=== PATIENT | female | born 1935 | race Caucasian/White ===

== ENCOUNTER → 2017-03-28 | Outpatient (CLI) | payer OTHER, MEDICAID ==
[2016-11-21 22:47] VITALS: BP 150/67
[2017-03-28 09:34] LABS: CREATININE 1.7 mg/dL (0.55-1.02)
== END ==
LOC: RAD 09:01
PROVIDERS: ATTEND Neurological Surgery
DX: D33.3 Benign neoplasm of cranial nerves (principal)
CPT/HCPCS: 36415; 82565; 84520

== ENCOUNTER 2017-07-16 19:19 | Emergency (ER) | payer OTHER, MEDICAID ==
[2017-07-16 19:27] VITALS: BP 152/79; BMI 29.7
[2017-07-16] MEDS ORDERED: MORPHINE SULFATE INJ 4 MG IM ONE (21:35)
[2017-07-16] MEDS ORDERED: ZOFRAN INJ 4 MG VIAL IM ONE (21:35)
--- NOTE | 2017-07-16 21:37 | DR.GENAD ---
HPI - PCP Primary Care Physician: SHOSHANA - HPI Comment HPI Comment: SLIGHT SOB. TAKE PLAVIX. PATIENT DID NOT HIT HEAD. SHADY PELVIC PAIN. - Complaint/Symptoms Chief Complaint Doctors Comments: PAIN RIGHT LOWER RIB DUE TO A FALL SEVERAL HOURS AGO. Chief Complaint:: PAIN TO RIGHT RIBS. - Nurses notes reviewed Nurses Notes Review: Yes - Source History Provided: Patient, Family Member - Mode of Arrival Mode of Arrival: Wheelchair - Timing Onset of Chief Complaint: 07/16/17 Came on: Suddenly - Duration Duration: Constant Duration: Hours - Severity Severity: Moderate PMH - PMH Past Medical History: Yes Past Medical History: CHF, Diabetes, Dyslipidemia, GERD, Hypothyroidism, Renal Disease Past Surgical History: Yes Surgical History: Cholecystectomy, Thyroidectomy Past Surgical History Comment: PACE MAKER - Family History History of Family Medical Conditions: Yes Family Medical History: Diabetes Mellitus, Cancer, Coronary Artery Disease - Social History Does patient currently use any type of tobacco product: No Have you used tobacco products in the last 12 months: No Type of Tobacco Use: None Does any household member use tobacco: No Alcohol Use: None Do you use any recreational Drugs:: No Lives With: Family Lives Where: Home - infectious screening In the last 2 months have you had wt loss of >10#?: NO Have you had fever, night sweats or hemotysis?: No Have you traveled outside the country in the last 6 months?: No Isolation: Standard ROS - Review of Systems Constitutional: No Symptoms Reported Eyes: No Symptoms Reported ENTM: No Symptoms Reported Respiratoy: No Symptoms Reported Cardiovascular: No Symptoms Reported Gastrointestinal/Abdominal: No Symptoms Reported Genitourinary: No Symptoms Reported Neurological: No Symptoms Reported Musculoskeletal: Muscle Pain, Chest wall (RT LOWER CHEST), Rib(s) (RT LOWER RIBS ) Integumentary: No Symptoms Reported Hematologic/Lymphatic: Easy Bleeding, Easy Bruising Endocrine: No Symptoms Reported All Other Systems: Reviewed and Negative PE - Vital Signs Vitals: Temperature 98.6 F Pulse Rate 71 Respiratory Rate 18 Blood Pressure [Right Arm] 131/58 Blood Pressure 152/79 O2 Sat by Pulse Oximetry 99 - General Limitations: No Limitations General Appearance: Alert - Head Head Exam: Normal Inspection - Eyes Eye exam: Normal Appearance - ENT ENT Exam: Normal External Ear Exam External Ear Exam: Normal External Inspection TM/Canal Exam: Bilateral Normal Nose Exam: Normal Nose Exam Mouth Exam: Normal Inspection Throat Exam: Normal Inspection - Neck Neck Exam: Trachea Midline - Chest Chest Inspection: Symmetric Chest Wall Rise - Respiratory Respiratory Exam: Chest Wall Tenderness (RT LOWER CHEST) Respiratory Exam: Bilateral Rhonchi, Lower Rhonchi - Cardiovascular Cardiovascular Exam: Regular Rate, Normal Rhythm, Normal Heart Sounds - Abdominal Exam Abdominal Exam: Normal Bowel Sounds, Soft. negative: Tenderness - Extremities Extremities Exam: Normal Inspection - Back Back Exam: Paraspinal Tenderness (LOWER BACK) - Neurologic Neurological Exam: Alert, Oriented X3 - Psychiatric Psychiatric Exam: Anxious - Skin Skin Exam: Normal Color MDM - Additional Information Additional Information Obtained From: Family - Differential Diagnosis Differential Diagnosis: RIGHT RIB CONTUSION, FRACTURE Course - Treatment Treatment: SEE ORDERS. IM PAIN MED IN ED. - Education/Counseling Education/Counseling: Patient, Family, Education Educated On: Treatment, Diagnosis, Needs for Follow Up ROR - XRAY XRAY Findings: REPORT DISCUSS WITH PATIENT AND FAMILY. - Diagnosis Discharge Problem: Right-sided chest wall pain Contusion of rib on right side Qualifiers: Encounter type: initial encounter Qualified Code(s): S20.211A - Contusion of right front wall of thorax, initial encounter - Discharge Plan Disposition: 01 HOME, SELF-CARE Condition: Stable - Follow ups/Referrals Follow ups/Referrals: KENDRA ANNA V [Primary Care Provider] - 2 days - Instructions Instructions: Rib Contusion Additional Instructions: RETURN TO ED IF WORSE.
[2017-07-16] MEDS ORDERED: ZOFRAN INJ 4 MG VIAL ONE ×2 (21:41→21:58)
[2017-07-16] MEDS ORDERED: MORPHINE SULFATE INJ 4 MG ONE ×2 (21:41→21:58)
--- NOTE | 2017-07-16 22:48 | RAD ---
Four views of the left ribs Indication: Left rib pain after fall. Comparison: 07/23/2016 Findings: There has been interval placement of left chest wall pacemaker. Heart size is normal. No fo leeanna airspace opacity or pneumothorax. Overall examination is limited as oblique imaging only visualiz es the lower 3 ribs and there is obscuration of the upper left lateral ribs by the pacemaker. No disp laced rib fracture is identified on the left. Multiple remote posterior lateral right sided rib fract ures are similar to prior exam. Impression: Limited examination demonstrates no displaced left-sided rib fracture. Reported By:
== END 2017-07-16 23:22 | disposition home or self-care (01) ==
LOC: ER 19:34
DX: S20.211A Contusion of right front wall of thorax, initial encounter (principal); R07.89 Other chest pain; W19.XXXA Unspecified fall, initial encounter; Y92.9 Unspecified place or not applicable
CPT/HCPCS: 71111; 96372; 99282; 99283; J2270; J2405

== ENCOUNTER 2017-09-03 12:05 | Emergency (ER) | payer OTHER, MEDICAID ==
[2017-09-03 12:14] VITALS: BMI 29.2
--- NOTE | 2017-09-03 12:28 | DR.NAUSEAF ---
HPI - Time Seen Time seen: 12:20 - Primary Care Physician Primary Care Physician: SHOSHANA - HPI Comment HPI Comment: Nausea + vomitting since yesterday. About 10 emesisce since onset. She denies recent travel or consumption of poorly prepared food. She has no abdominal pain or fever. 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 Self Treatment fo Chief Complaint: ZOFRAN - Reviewed Nurses Notes Reviewed: Yes - Source History Provided: Patient, Family Member - Mode of Arrival Mode of Arrival: Ambulatory - Timing Onset of Chief Complaint: 09/02/17 - Severity Number of episodes of vomiting over last 24 hours: 10 - Context Onset: After Eating (chicken) Recent: None Possible Ingestion: denies: Unknown, ETOH, Ethylene Glycol, Isopropanol, Methanol : No PMH - PMH Past Medical History: Yes Past Medical History: CHF, Coronary Artery Disease (s/p M.I.- 2016), Diabetes, Dyslipidemia, GERD, Hypothyroidism, Renal Disease Past Surgical History: Yes Surgical History: Cholecystectomy, Thyroidectomy - Family History History of Family Medical Conditions: Yes Family Medical History: Diabetes Mellitus, Cancer, Coronary Artery Disease - Social History Does patient currently use any type of tobacco product: No Have you used tobacco products in the last 12 months: No Type of Tobacco Use: None Does any household member use tobacco: No Alcohol Use: None Do you use any recreational Drugs:: No Lives With: Family Lives Where: Home - infectious screening In the last 2 months have you had wt loss of >10#?: NO Have you had fever, night sweats or hemotysis?: No Have you traveled outside the country in the last 6 months?: No Isolation: Standard ROS - Review of Systems Constitutional: No Symptoms Reported Eyes: No Symptoms Reported ENTM: No Symptoms Reported Respiratoy: No Symptoms Reported Cardiovascular: No Symptoms Reported Gastrointestinal/Abdominal: Nausea, Vomiting Genitourinary: No Symptoms Reported Neurological: No Symptoms Reported Musculoskeletal: No Symptoms Reported Integumentary: No Symptoms Reported Hematologic/Lymphatic: No Symptoms Reported Endocrine: No Symptoms Reported Psychiatric: No Symptoms Reported All Other Systems: Reviewed and Negative PE - Vital Signs Vitals: Temperature 98.4 F Pulse Rate [Left Brachial] 82 Pulse Rate 80 Respiratory Rate 18 Blood Pressure [Right Arm] 172/74 Blood Pressure 148/79 O2 Sat by Pulse Oximetry 95 - General Limitations: No Limitations General Appearance: Alert, In No Apparent Distress - Head Head Exam: Normal Inspection - Eyes Eye exam: Normal Appearance - ENT ENT Exam: Normal Exam - Neck Neck Exam: Normal Inspection, Full ROM, Trachea Midline - Chest Chest Inspection: Normal Inspection, Symmetric Chest Wall Rise - Respiratory Respiratory Exam: Normal Lung Sounds Bilat - Cardiovascular Cardiovascular Exam: Regular Rate, Normal Rhythm - Abdominal Exam Abdominal Exam: Normal Inspection, Normal Bowel Sounds, Soft - Rectal Rectal Exam: Deferred - Extremities Extremities Exam: Normal Inspection, Full ROM - Back Back Exam: Normal Inspection - Neurologic Neurological Exam: Alert, Oriented X3, CN II-XII Intact - Psychiatric Psychiatric Exam: Normal Affect, Normal Mood - Skin Skin Exam: Warm, Dry, Intact, Normal Color Course - Reevaluation 1st: Improved 2nd: Improved - Education/Counseling Education/Counseling: Patient Educated On: Treatment, Diagnosis, Needs for Follow Up ROR - Labs Reviewed Result Diagrams: 09/03/17 12:50 09/03/17 12:50 Laboratory: WBC 10.7 X10^3/uL (3.6-10.0) H 09/03/17 12:50 RBC 4.07 X10^6/uL (3.5-5.4) 09/03/17 12:50 Hgb 12.2 g/dL (12.0-16.0) 09/03/17 12:50 Hct 36.7 % (36.0-47.0) 09/03/17 12:50 MCV 90.2 fL (80.0-100.0) 09/03/17 12:50 MCH 29.9 pg (27.0-34.0) 09/03/17 12:50 MCHC 33.2 g/dL (33.0-35.0) 09/03/17 12:50 RDW 14.8 % (11.6-16.5) 09/03/17 12:50 Plt Count 200 X10^3/uL (150.0-450.0) 09/03/17 12:50 MPV 10.3 fL (7.4-11.0) 09/03/17 12:50 Neut % 81.5 % (42.0-75.0) H 09/03/17 12:50 Lymph % 10.5 % (21.0-51.0) L 09/03/17 12:50 [place] % 3.9 % (0.0-13.0) 09/03/17 12:50 Eos % 2.6 % (0.9-2.9) 09/03/17 12:50 Baso % 1.5 % (0.2-1.0) H 09/03/17 12:50 Neut # 8.8 x10^3/uL (2.2-4.8) H 09/03/17 12:50 Lymph # 1.1 X10^3/uL (1.3-2.9) L 09/03/17 12:50 [place] # 0.4 x10^3/uL (0.3-0.8) 09/03/17 12:50 Eos # 0.3 x10^3/uL (0.0-0.2) H 09/03/17 12:50 Baso # 0.2 X10^3/uL (0.0-0.1) H 09/03/17 12:50 Absolute Nucleated RBC 0.0 /100WBC 09/03/17 12:50 Sodium 142 mmol/L (136-145) 09/03/17 12:50 Corrected Sodium 143 mmol/L (136-145) 09/03/17 12:50 Potassium 4.1 mmol/L (3.5-5.1) 09/03/17 12:50 Chloride 102 mmol/L (98-107) 09/03/17 12:50 Carbon Dioxide 33.3 mmol/L (21-32) H 09/03/17 12:50 BUN 38 mg/dL (7-18) H 09/03/17 12:50 Creatinine 1.57 mg/dL (0.55-1.02) H 09/03/17 12:50 Est GFR (MDRD) Af Amer 40 (>60) L 09/03/17 12:50 Est GFR (MDRD) Non-Af 33 (>60) L 09/03/17 12:50 Glucose 154 mg/dL (65-99) H 09/03/17 12:50 Calcium 9.2 mg/dL (8.5-10.1) 09/03/17 12:50 Amylase 42 Units/L (25-115) 09/03/17 12:50 Lipase 101 Units/L (73-393) 09/03/17 12:50 - XRAY XRAY Interpreted by: Radiologist (CXR: Normal chest. Abd: No free air) - Diagnosis Discharge Problem: Nausea, Renal insufficiency - Discharge Plan Disposition: HOME, SELF-CARE Condition: Stable - Follow ups/Referrals Follow ups/Referrals: KENDRA ANNA V [Primary Care Provider] - 3 days - Instructions
[2017-09-03] MEDS ORDERED: ZOFRAN INJ 4 MG VIAL IVP ONE ×2 (12:30→16:11)
[2017-09-03] MEDS ORDERED: NS 1/2 500 ML IV 500 ML IV ONE (12:30)
[2017-09-03] MEDS ORDERED: NS 1000 ML 1,000 ML ONE (12:34)
[2017-09-03] MEDS ORDERED: ZOFRAN INJ 4 MG VIAL ONE ×2 (12:35→16:13)
[2017-09-03] MEDS ORDERED: NS 1000 ML 1,000 ML IV SCH (13:00)
[2017-09-03 13:07] LABS: BASOPHILS # (AUTO) 0.2 X10^3/uL (0.0-0.1); BASOPHILS % (AUTO) 1.5 % (0.2-1.0); EOSINOPHILS # (AUTO) 0.3 x10^3/uL (0.0-0.2); EOSINOPHILS % (AUTO) 2.6 % (0.9-2.9); HEMATOCRIT 36.7 % (36.0-47.0); HEMOGLOBIN 12.2 g/dL (12.0-16.0); LYMPHOCYTES # (AUTO) 1.1 X10^3/uL (1.3-2.9); LYMPHOCYTES % (AUTO) 10.5 % (21.0-51.0); MEAN CORPUSCULAR HEMOGLOBIN 29.9 pg (27.0-34.0); MEAN CORPUSCULAR HGB CONC 33.2 g/dL (33.0-35.0); MEAN CORPUSCULAR VOLUME 90.2 fL (80.0-100.0); MEAN PLATELET VOLUME 10.3 fL (7.4-11.0); MONOCYTES # (AUTO) 0.4 x10^3/uL (0.3-0.8); MONOCYTES % (AUTO) 3.9 % (0.0-13.0); NEUTROPHILS # (AUTO) 8.8 x10^3/uL (2.2-4.8); NEUTROPHILS % (AUTO) 81.5 % (42.0-75.0); PLATELET COUNT 200 X10^3/uL (150.0-450.0); RED BLOOD COUNT 4.07 X10^6/uL (3.5-5.4); RED CELL DISTRIBUTION WIDTH 14.8 % (11.6-16.5); WHITE BLOOD COUNT 10.7 X10^3/uL (3.6-10.0)
[2017-09-03 13:11] LABS: CALCIUM 9.2 mg/dL (8.5-10.1); CARBON DIOXIDE 33.3 mmol/L (21-32); CREATININE 1.57 mg/dL (0.55-1.02)
--- NOTE | 2017-09-03 13:23 | RAD ---
History: Vomiting Study: Abdominal survey Findings: PA upright chest and AP and supine views of the abdomen and pelvis are submitted. There is a dual lead left-sided cardiac pacer seen. The lungs are without acute infiltrate. No CHF is seen. There are displaced rib fractures involving the right 4th 5th 6th and 7th ribs. The abdominal views show moderate stool throughout colon. No focal distension of small bowel is seen. No free intraperitoneal gas is evident. Moderate vascular calcification is seen. Impression: 1. Fractures of multiple right ribs. 2. Moderate stool throughout colon without small bowel distention or free intraperitoneal gas. Reported By:
[2017-09-03 19:36] VITALS: BP 131/60
== END 2017-09-03 19:56 | disposition home or self-care (01) ==
LOC: ER 12:30
DX: S22.41XA Multiple fractures of ribs, right side, initial encounter for closed fracture (principal); N28.9 Disorder of kidney and ureter, unspecified; R11.2 Nausea with vomiting, unspecified; Y33.XXXA Other specified events, undetermined intent, initial encounter
CPT/HCPCS: 36415; 74022; 80048; 82150; 83690; 85025; 96365; 96367; 96374; 96375; 99283; A4222; J2405

== ENCOUNTER 2018-01-10 23:10 | Emergency (ER) | payer OTHER, MEDICAID ==
[2018-01-10 23:18] VITALS: BP 189/74; BMI 29.6
--- NOTE | 2018-01-11 | DR.GENAD ---
HPI - PCP Primary Care Physician: shari - Complaint/Symptoms Chief Complaint Doctors Comments: Patient states she rolled out of bed and hit the right side of her head and eye but she do not know what she hit. She is also complaining of right arm and left great toe pain. States she has rolled out of bed recently before this episode but she did not hurt herself then. States she has had a tetanus in less than a year ago. 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 States she is a patient of Dr. Mcpherson in [place] and she takes 30 units of insulin at night but she has not had her dose for tonight. She denies chest pain, SOB, cold or cough. she denies neck pain of LOC. Chief Complaint:: fell out of bed - Nurses notes reviewed Nurses Notes Review: Yes - Source History Provided: Patient - Mode of Arrival Mode of Arrival: Ambulatory - Timing Onset of Chief Complaint: 01/10/18 Came on: Suddenly - Duration Duration: Constant How lon Duration: Hours - Location Location: right forehead and eye - Severity Severity: Moderate - Modifying Factors Worsens:: nothing Improves:: nothing PMH - PMH Past Medical History: Yes Past Medical History: CHF, Coronary Artery Disease, Diabetes, Dyslipidemia, GERD , Hypothyroidism, Renal Disease Past Surgical History: Yes Surgical History: Cholecystectomy, Thyroidectomy Past Surgical History Comment: pacemaker - Family History History of Family Medical Conditions: Yes Family Medical History: Diabetes Mellitus, Cancer, Coronary Artery Disease - Social History Does patient currently use any type of tobacco product: No Have you used tobacco products in the last 12 months: No Type of Tobacco Use: None Does any household member use tobacco: No Alcohol Use: None Do you use any recreational Drugs:: No Lives With: Family Lives Where: Home - infectious screening In the last 2 months have you had wt loss of >10#?: NO Have you had fever, night sweats or hemotysis?: No Have you traveled outside the country in the last 6 months?: No Isolation: Standard ROS - Review of Systems Constitutional: No Symptoms Reported. negative: See HPI, Chills, Diaphoresis, Fever, Malaise, Weakness, Irritable, Fatigue, Loss of Appetite, Other Eyes: No Symptoms Reported, Eye Pain (pain above right eye). negative: See HPI , Blurred Vision, Tearing, Discharge, Photophobia, Diplopia, Other ENTM: No Symptoms Reported Respiratoy: No Symptoms Reported. negative: See HPI, Productive Cough, Non- Productive Cough, Moist Cough, Dry Cough, Hacking Cough, Barking Cough, Brassy Cough, Orthopnea, Short of Breath, Stridor, Wheezing, Hemoptysis, Other Cardiovascular: No Symptoms Reported. negative: See HPI, Chest Pain, Edema, Palpitations, Syncope, Cyanosis, Skin Mottling, Other Gastrointestinal/Abdominal: No Symptoms Reported. negative: See HPI, Abdominal Pain, Constipation, Diarrhea, Nausea, Vomiting, Food Intolerance, Other Genitourinary: No Symptoms Reported Neurological: No Symptoms Reported. negative: See HPI, Anxiety, Depressed, Emotional Problems, Headache, Numbness, Paresthesia, Pre-existing Deficit, Seizure, Tingling, Tremors, Weakness, Dizziness, Problems Walking, Speech Problem, Other Musculoskeletal: No Symptoms Reported, Right, Forearm Integumentary: No Symptoms Reported, Wound, Bruises Hematologic/Lymphatic: No Symptoms Reported. negative: See HPI, Anemia, Blood Clots, Easy Bleeding, Easy Bruising, Swollen Glands, Lymphadenopathy, Other Endocrine: No Symptoms Reported. negative: See HPI, Excessive Sweating, Flushing, Intolerance to Cold, Intolerance to Heat, Increased Hunger, Increased Thirst, Increased Urine, Unexplained Weight Gain, Unexplained Weight Loss, Failure to Thrive, Decreased Appetite, Other Psychiatric: No Symptoms Reported. negative: See HPI, Anxiety, Depression, Hallucinations, Excessive crying, Suicidal, Other PE - Vital Signs Vitals: Temperature 97.3 F Pulse Rate 73 Respiratory Rate 16 Blood Pressure [Right Arm] 131/60 Blood Pressure 189/74 O2 Sat by Pulse Oximetry 100 - General Limitations: No Limitations General Appearance: Alert, In Distress (mild) - Head Head Exam: Normal Inspection, Normocephalic. negative: Atraumatic (right forehead with ecchymosis and bruising around right eye with hematoma) - Eyes Eye exam: Normal Appearance, PERRL, EOMI, Periorbital Swelling (right eye swelling with ecchymosis). negative: Scleral Icterus, Conjunctival Injection, Nystagmus, Miosis, Mydrasis, Periorbital Tenderness, Other - ENT ENT Exam: Normal Exam, Normal Oropharynx, Normal External Ear Exam, Mucous Membranes Moist, TM's Normal Bilaterally External Ear Exam: Normal External Inspection TM/Canal Exam: Bilateral Normal Nose Exam: Normal Nose Exam Mouth Exam: Normal Inspection. negative: Drooling, Trismus, Lip Swelling, Tongue Elevation, Tongue Swelling, Laceration, Other Throat Exam: Normal Inspection. negative: Tonsillar Erythema, Tonsillomegaly, Tonsillar Exudate, R Peritonsillar Mass, L Peritonsillar Mass, Muffled Voice, Other - Neck Neck Exam: Normal Inspection, Full ROM, Trachea Midline - Chest Chest Inspection: Normal Inspection, Symmetric Chest Wall Rise - Respiratory Respiratory Exam: Normal Lung Sounds Bilat Respiratory Exam: Bilateral Clear to Auscultation - Cardiovascular Cardiovascular Exam: Regular Rate, Normal Rhythm, Normal Heart Sounds - Abdominal Exam Abdominal Exam: Normal Inspection, Normal Bowel Sounds, Soft. negative: Distention, Tenderness, Guarding, Rebound, Rigidity, Dimnished Bowel Sounds, Hyperactive Bowel Sounds, Hypoactive Bowel Sounds, Organomegaly, Trauma, Incision, Ascites, Mass, Bruit, Pulsatile Mass, Hernia, Other Abdominal Tenderness: negative: RUQ, RLQ, LUQ, LLQ, Epigastrium, Suprapubic, Diffuse, Mild, Moderate, Severe, Other - Extremities Extremities Exam: Normal Inspection, Full ROM, Normal Capillary Refill. negative: Tenderness (right forearm with 3-4 cm hematoma; right elbow with hematoma; good range of motion), Edema, Joint Swelling - Back Back Exam: Normal Inspection, Full ROM. negative: Tenderness, (R) CVA Tenderness, (L) CVA Tenderness, Muscle Spasm, Paraspinal Tenderness, Vertebral Tenderness, Rashes, (R) Sciatic Notch Tenderness, (L) Sciatic Notch Tendern, (R ) Straight Leg Raise, (L) Straight Leg Raise, Other - Neurologic Neurological Exam: Alert, Oriented X3, CN II-XII Intact, Reflexes Normal. negative: Normal Gait (gait not tested) - Psychiatric Psychiatric Exam: Normal Affect, Normal Mood - Skin Skin Exam: Warm, Dry, Intact, Normal Color Course - Consultation Called: 01:21 Call Returned: 01:21 (Dr. Wright accepted patient at ER at [facility]) - Education/Counseling Education/Counseling: Patient Educated On: Treatment, Diagnosis, Needs for Follow Up ROR - Labs Reviewed Laboratory Results Reviewed?: Yes (All labs and x-ray results reviewed and discussed with patient) Result Diagrams: 01/11/18 00:10 01/11/18 00:10 Laboratory: WBC 8.9 X10^3/uL (3.6-10.0) 01/11/18 00:10 RBC 3.50 X10^6/uL (3.5-5.4) 01/11/18 00:10 Hgb 10.5 g/dL (12.0-16.0) L 01/11/18 00:10 Hct 32.1 % (36.0-47.0) L 01/11/18 00:10 MCV 91.7 fL (80.0-100.0) 01/11/18 00:10 MCH 30.1 pg (27.0-34.0) 01/11/18 00:10 MCHC 32.8 g/dL (33.0-35.0) L 01/11/18 00:10 RDW 15.1 % (11.6-16.5) 01/11/18 00:10 Plt Count 213 X10^3/uL (150.0-450.0) 01/11/18 00:10 MPV 9.5 fL (7.4-11.0) 01/11/18 00:10 Neut % 74.5 % (42.0-75.0) 01/11/18 00:10 Lymph % 15.1 % (21.0-51.0) L 01/11/18 00:10 [place] % 4.3 % (0.0-13.0) 01/11/18 00:10 Eos % 5.4 % (0.9-2.9) H 01/11/18 00:10 Baso % 0.7 % (0.2-1.0) 01/11/18 00:10 Neut # 6.6 x10^3/uL (2.2-4.8) H 01/11/18 00:10 Lymph # 1.3 X10^3/uL (1.3-2.9) 01/11/18 00:10 [place] # 0.4 x10^3/uL (0.3-0.8) 01/11/18 00:10 Eos # 0.5 x10^3/uL (0.0-0.2) H 01/11/18 00:10 Baso # 0.1 X10^3/uL (0.0-0.1) 01/11/18 00:10 Absolute Nucleated RBC 0.0 /100WBC 01/11/18 00:10 INR Target Range - 01/11/18 00:10 INR 1.10 (0.8-1.3) 01/11/18 00:10 PTT 36.4 SECONDS (22.9-36.5) 01/11/18 00:10 PTT Comment - 01/11/18 00:10 Sodium 134 mmol/L (136-145) L 01/11/18 00:10 Corrected Sodium 141 mmol/L (136-145) 01/11/18 00:10 Potassium 5.5 mmol/L (3.5-5.1) H 01/11/18 00:10 Chloride 97 mmol/L (98-107) L 01/11/18 00:10 Carbon Dioxide 30.8 mmol/L (21-32) 01/11/18 00:10 BUN 46 mg/dL (7-18) H 01/11/18 00:10 Creatinine 2.41 mg/dL (0.55-1.02) H 01/11/18 00:10 Est GFR (MDRD) Af Amer 25 (>60) L 01/11/18 00:10 Est GFR (MDRD) Non-Af 20 (>60) L 01/11/18 00:10 Glucose 389 mg/dL (65-99) H 01/11/18 00:10 Calcium 8.0 mg/dL (8.5-10.1) L 01/11/18 00:10 Corrected Calcium TNP 01/11/18 00:10 Magnesium 2.0 mg/dL (1.7-2.9) 01/11/18 00:10 Total Bilirubin 0.20 mg/dL (0.2-1.0) 01/11/18 00:10 AST 22 Units/L (15-37) 01/11/18 00:10 ALT 22 Units/L (12-78) 01/11/18 00:10 Alkaline Phosphatase 122 Units/L (46-116) H 01/11/18 00:10 Creatine Kinase 220 Units/L (26-192) H 01/11/18 00:10 CK-MB (CK-2) 5.9 ng/mL (0-4.0) H* 01/11/18 00:10 CK/CKMB % Calc 2.7 % (<4) 01/11/18 00:10 Troponin I < 0.02 ng/mL (0-1.5) 01/11/18 00:10 Total Protein 7.8 g/dL (6.4-8.2) 01/11/18 00:10 Albumin 3.5 g/dL (3.4-5.0) 01/11/18 00:10 Globulin 4.3 g/dL (2.5-4.5) 01/11/18 00:10 Albumin/Globulin Ratio 0.8 Ratio (1.1-2.1) L 01/11/18 00:10 - XRAY XRAY Interpreted by: Radiologist (CT head: Acute subdural hematoma left cerebral convexity 9mm. Grossly unchanged right CP angle mass), Self (CXR: pacemaker intact; no acute cardiopulmonary changes noted) - EKG Rate: 70 [place]: Normal Rhythm: Paced Block: LBBB ST: Nonsp - Diagnosis Discharge Problem: Acute subdural hematoma, cerebellopontine mass, Essential hypertension, Contusion of right forearm, initial encounter, Hyperkalemia, Hyperglycemia Contusion of head Qualifiers: Encounter type: initial encounter Chronic kidney disease Qualifiers: Chronic kidney disease stage: stage 3 (moderate) Qualified Code(s): N18.3 - Chronic kidney disease, stage 3 (moderate) - Discharge Plan Disposition: [facility] Condition: Stable - Follow ups/Referrals Follow ups/Referrals: KENDRA ANNA V [Primary Care Provider] - 3 days - Instructions
[2018-01-11 00:30] LABS: BASOPHILS # (AUTO) 0.1 X10^3/uL (0.0-0.1); BASOPHILS % (AUTO) 0.7 % (0.2-1.0); EOSINOPHILS # (AUTO) 0.5 x10^3/uL (0.0-0.2); EOSINOPHILS % (AUTO) 5.4 % (0.9-2.9); HEMATOCRIT 32.1 % (36.0-47.0); HEMOGLOBIN 10.5 g/dL (12.0-16.0); LYMPHOCYTES # (AUTO) 1.3 X10^3/uL (1.3-2.9); LYMPHOCYTES % (AUTO) 15.1 % (21.0-51.0); MEAN CORPUSCULAR HEMOGLOBIN 30.1 pg (27.0-34.0); MEAN CORPUSCULAR HGB CONC 32.8 g/dL (33.0-35.0); MEAN CORPUSCULAR VOLUME 91.7 fL (80.0-100.0); MEAN PLATELET VOLUME 9.5 fL (7.4-11.0); MONOCYTES # (AUTO) 0.4 x10^3/uL (0.3-0.8); MONOCYTES % (AUTO) 4.3 % (0.0-13.0); NEUTROPHILS # (AUTO) 6.6 x10^3/uL (2.2-4.8); NEUTROPHILS % (AUTO) 74.5 % (42.0-75.0); PLATELET COUNT 213 X10^3/uL (150.0-450.0); RED CELL DISTRIBUTION WIDTH 15.1 % (11.6-16.5); WHITE BLOOD COUNT 8.9 X10^3/uL (3.6-10.0)
[2018-01-11 00:39] LABS: BLOOD UREA NITROGEN 46 mg/dL (7-18); CARBON DIOXIDE 30.8 mmol/L (21-32); CHLORIDE 97 mmol/L (98-107); COR NA(FOR HYPERGLY) 141 mmol/L (136-145); CREATININE 2.41 mg/dL (0.55-1.02); SODIUM 134 mmol/L (136-145); TROPONIN I < 0.02 ng/mL (0-1.5); eGFR BLACK RACES 25 (>60); eGFR NON BLACK RACES 20 (>60)
--- NOTE | 2018-01-11 00:58 | CT ---
CT head without contrast Indication: Fall with head injury Technique: CT images of the head were obtained without contrast. Automatic exposure control was utili zed. Findings: Right periorbital contusion is noted. Facial findings are reported separately. There is moderate generalized brain atrophy with concomitant ventricular and sulcal enlargement. Ther e is an acute subdural hematoma overlying the left parietal lobe measuring 9 mm in maximum thickness. There is no evidence for significant midline shift or downward herniation related to this hemorrhage . There is a difficult to measure extra-axial lesion at the right cerebellopontine angle measuring appr oximately 3.2 x 1.8 cm in maximum axial dimension (axial image 9). There is mild leftward effacement of the preet and middle cerebellar peduncle by this lesion. This lesion appears grossly unchanged comp ared with the MRIs from 2016. The medial portion of the right internal auditory canal appears mildly widened. No acute calvarial fracture is identified. The mastoid air cells and middle ears are grossly clear. Impression: 1. Acute subdural hematoma overlying the left cerebral convexity, measuring 9 mm in maximum thickness . 2. Grossly unchanged right CP angle mass. This is suggestive for a vestibular schwannoma, given IAC w idening, although other considerations include meningioma, ependymoma, and metastasis. THE AVAILABILITY OF THE REPORT AND FINDINGS WERE COMMUNICATED TO Dr. Espino BY Dr. Jones ON 018 AT 12:55 a.m. Reported By:
[2018-01-11 01:05] LABS: ALANINE AMINOTRANSFERASE 22 Units/L (12-78); ALBUMIN 3.5 g/dL (3.4-5.0); ALKALINE PHOSPHATASE 122 Units/L (46-116); ASPARTATE AMINO TRANSFERASE 22 Units/L (15-37); CKMB % 2.7 % (<4); CREATINE KINASE 220 Units/L (26-192); TOTAL PROTEIN 7.8 g/dL (6.4-8.2)
[2018-01-11 01:07] LABS: CREATINE KINASE MB 5.9 ng/mL (0-4.0)
--- NOTE | 2018-01-11 01:11 | CT ---
CT face without contrast Indication: Facial injury Technique: CT images of the face were obtained without contrast. Automatic exposure control was [employer]. Findings: CT of the head is reported separately. There is right periorbital contusion with soft tissue gas medially, suggesting associated laceration. The globes are grossly intact. There is no large retrobulbar hematoma. No acute facial fracture iden tified. The mandible is intact. The major paranasal sinuses are grossly clear, without fluid level. Impression: Right periorbital contusion/laceration. No acute facial fracture. Reported By:
[2018-01-11 01:55] LABS: BILIRUBIN,URINE NEGATIVE (NEGATIVE); BLOOD/HEMOGLOBIN,URINE NEGATIVE (NEGATIVE); GLUCOSE, URINE 4+ (NEGATIVE); KETONES,URINE NEGATIVE (NEGATIVE); LEUKOCYTE ESTERASE ,URINE 1+ (NEGATIVE); NITRITES,URINE NEGATIVE (NEGATIVE); PH,URINE 6.5 (5.0 - 8.0); PROTEIN,URINE NEGATIVE (NEGATIVE); UROBILINOGEN,URINE NORMAL (NORMAL)
--- NOTE | 2018-01-11 02:02 | RAD ---
Right forearm, AP and lateral Indication: Fall with arm injury. Findings: There is generalized osteopenia. No acute cortical disruption or malalignment of the radius or ulna. No gross soft tissue injury. Impression: No acute skeletal injury of the right forearm. Generalized osteopenia. Reported By:
[2018-01-11 02:03] LABS: APPEARANCE,URINE CLEAR (CLEAR); BACTERIA,URINE NEGATIVE /HPF (NEGATIVE); COLOR,URINE YELLOW (YELLOW); RBC,URINE 0-3 /HPF (NONE SEEN); SQUAMOUS EPITHELIAL CELL,UR RARE /HPF (NEGATIVE)
--- NOTE | 2018-01-11 02:04 | RAD ---
Chest, AP portable Indication: Chest pain after injury Comparison: 07/16/2017 Findings: Multiple chronic right-sided rib fractures are unchanged from prior. No acute skeletal inju ry is identified. The cardiac and mediastinal contours are within normal limits. There is decreased d epth of inspiration with interstitial crowding at the bases. No dense infiltrates, large effusion, or pneumothorax identified. Impression: No acute chest process. Reported By:
== END 2018-01-11 02:35 | disposition short-term general hospital (02) ==
LOC: ER 23:10
DX: S06.5X0A Traumatic subdural hemorrhage without loss of consciousness, initial encounter (principal); N18.3 Chronic kidney disease, stage 3 (moderate); S00.93XA Contusion of unspecified part of head, initial encounter; D33.3 Benign neoplasm of cranial nerves; I10 Essential (primary) hypertension; S50.11XA Contusion of right forearm, initial encounter; E87.5 Hyperkalemia; R73.9 Hyperglycemia, unspecified; R94.31 Abnormal electrocardiogram [ECG] [EKG]; W06.XXXA Fall from bed, initial encounter; Y92.9 Unspecified place or not applicable
CPT/HCPCS: 36415; 51702; 70450; 70486; 71045; 73090; 80053; 81001; 82550; 82553; 83735; 84484; 85025; 85610; 85730; 93005; 93010; 96365; 99285; A4222

== ENCOUNTER 2018-09-17 11:42 | Inpatient (IN) ==
[2018-09-17 11:50] VITALS: BMI 27.0
[2018-09-17 12:39] LABS: BASOPHILS # (AUTO) 0.1 X10^3/uL (0.0-0.1); BASOPHILS % (AUTO) 0.9 % (0.2-1.0); EOSINOPHILS # (AUTO) 0.3 x10^3/uL (0.0-0.2); EOSINOPHILS % (AUTO) 4.1 % (0.9-2.9); HEMATOCRIT 38.3 % (36.0-47.0); HEMOGLOBIN 12.4 g/dL (12.0-16.0); LYMPHOCYTES # (AUTO) 1.2 X10^3/uL (1.3-2.9); LYMPHOCYTES % (AUTO) 16.6 % (21.0-51.0); MEAN CORPUSCULAR HGB CONC 32.4 g/dL (33.0-35.0); MEAN CORPUSCULAR VOLUME 89.6 fL (80.0-100.0); MEAN PLATELET VOLUME 11.2 fL (7.4-11.0); MONOCYTES # (AUTO) 0.4 x10^3/uL (0.3-0.8); MONOCYTES % (AUTO) 5.9 % (0.0-13.0); NEUTROPHILS # (AUTO) 5.3 x10^3/uL (2.2-4.8); NEUTROPHILS % (AUTO) 72.5 % (42.0-75.0); PLATELET COUNT 164 X10^3/uL (150.0-450.0); RED BLOOD COUNT 4.27 X10^6/uL (3.5-5.4); RED CELL DISTRIBUTION WIDTH 14.9 % (11.6-16.5); WHITE BLOOD COUNT 7.2 X10^3/uL (3.6-10.0)
--- NOTE | 2018-09-17 12:43 | RAD ---
History: Dysphagia. Right facial drooping. Study: Portable upright AP chest Comparison: January 11, 2018 Findings: The heart size is normal with intact pacemaker wire leads via the left subclavian vein. The lungs are grossly clear. There are multiple deformed right posterior lateral rib fractures unchanged. There are surgical clips in the region of the thyroid. Impression: No acute disease demonstrated Reported By:
--- NOTE | 2018-09-17 12:48 | CT ---
HISTORY: Episodes of being unable to communicate, right side of mouth drooping Study: CT brain without contrast Comparison: CT 01/11/2018, MRI 03/28/2016 Technique: Multiple axial images of the brain were obtained without administration of IV contrast. Dose reduction techniques including Automated Exposure Control (AEC) and adjustment of mA and kV were utilized. Findings: There is cerebral volume loss and nonspecific white matter hypoattenuation likely related to chronic microvascular ischemic changes. 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 There is mass effect upon preet right cerebellar peduncle as well as mild effacement of the 4th ventricle that is chronic in nature without significant interval change. Differential considerations would include meningioma, vestibular schwannoma, metastatic disease etc. No evidence of hydrocephalus. There is a left-sided perianal craniotomy defect. There is a trace amount of simple subdural fluid likely postsurgical in nature. No new hemorrhage identified. IMPRESSION: 1. Post craniotomy changes on the left without evidence of acute intracranial abnormality. 2. Grossly stable right cerebellopontine angle mass as previously described. 3. Chronic cerebral volume loss and nonspecific white matter changes. Reported By:
[2018-09-17 12:58] LABS: ALBUMIN 3.2 g/dL (3.4-5.0); CALCIUM 8.2 mg/dL (8.5-10.1); CARBON DIOXIDE 33.6 mmol/L (21-32); CKMB % 2.9 % (<4); COR CA(FOR HYPOALB) 8.8 mg/dL (8.5-10.1); CREATINE KINASE MB 1.7 ng/mL (0-4.0); CREATININE 1.76 mg/dL (0.55-1.02); MAGNESIUM 2.2 mg/dL (1.7-2.9); TOTAL PROTEIN 7.5 g/dL (6.4-8.2); TROPONIN I 0.02 ng/mL (0-1.5)
[2018-09-17] MEDS ORDERED: NS 1000 ML 1,000 ML IV ONE ×2 (13:00→14:46)
[2018-09-17] MEDS ORDERED: NS 1000 ML 1,000 ML ONE ×2 (13:17→14:46)
--- NOTE | 2018-09-17 13:58 | DR.GENAD ---
HPI Time Seen Time Seen by Provider: 09/17/18 12:10 PCP Primary Care Physician: SHOSHANA Complaint/Symptoms Chief Complaint Doctors Comments: I agree with statement as written. 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 She is followed by Geraldine (neurosurgeon) [phone]. He will see her upon discharge for mental status change due to pontine mass. Chief Complaint:: PT. STATES SINCE THIS PAST SATURDAY SHE HAS BEEN HAVING EPISODES OF WHERE SHE IS UNABLE TO COMMUNICATE, EPISODES LAST APPROXIMATELY 5 MINUTES. RIGHT SIDE OF MOUTH DROOPING. EPISODE OCCURED DURING TRIAGE WHEN RIGHT SIDE OF MOUTH BEGINS TWITCHING AND PT. IS UNABLE TO COMMUNICATE, LASTED ABOUT 1-2 MINUTES. PT. STATES SHE IS HAVING A DIFFICULT TIME SWALLOWING HER PILLS. Nurses notes reviewed Nurses Notes Review: Yes Source History Provided: Patient and Family Member Mode of Arrival Mode of Arrival: Wheelchair Timing Onset of Chief Complaint: 09/12/18 PMH PMH Past Medical History: Yes Past Medical History: CHF, Coronary Artery Disease, Diabetes, Dyslipidemia, GERD, Hypothyroidism and Renal Disease Past Surgical History: Yes Surgical History: Cholecystectomy and Thyroidectomy Past Surgical History Comment: PACEMAKER, SUBDURAL HEMATOMA (METAL PLATE IN HEAD) Family History History of Family Medical Conditions: Yes Family Medical History: Diabetes Mellitus, Cancer and Coronary Artery Disease Social History Does patient currently use any type of tobacco product: No Have you used tobacco products in the last 12 months: No Type of Tobacco Use: None Does any household member use tobacco: No Alcohol Use: None Do you use any recreational Drugs:: No Lives With: Family Lives Where: Home infectious screening In the last 2 months have you had wt loss of >10#?: NO Have you had fever, night sweats or hemotysis?: No Have you traveled outside the country in the last 6 months?: No Isolation: Standard PE Vital Signs Vitals: Temperature 97.8 F Pulse Rate [Left Brachial] 70 Pulse Rate 70 Respiratory Rate 17 Blood Pressure [Right Arm] 158/70 Blood Pressure 106/55 O2 Sat by Pulse Oximetry 98 General Limitations: No Limitations and Altered Mental Status (Intermittent inability to communicate due to mass effect.) General Appearance: Alert and In No Apparent Distress Head Head Exam: Normal Inspection, Atraumatic and Normocephalic Eyes Eye exam: Normal Appearance, PERRL and EOMI ENT ENT Exam: Normal Exam and Normal Oropharynx External Ear Exam: Normal External Inspection TM/Canal Exam: Bilateral: Normal Nose Exam: Normal Nose Exam Mouth Exam: Normal Inspection Throat Exam: Normal Inspection Neck Neck Exam: Normal Inspection and Full ROM Chest Chest Inspection: Normal Inspection Respiratory Respiratory Exam: Normal Lung Sounds Bilat Respiratory Exam: Bilateral: Clear to Auscultation Cardiovascular Cardiovascular Exam: Regular Rate and Normal Rhythm Abdominal Exam Abdominal Exam: Normal Inspection, Normal Bowel Sounds and Soft Extremities Extremities Exam: Normal Inspection and Full ROM Back Back Exam: Normal Inspection and Full ROM Neurologic Neurological Exam: Alert, Oriented X3 and CN II-XII Intact Psychiatric Psychiatric Exam: Normal Affect and Normal Mood Skin Skin Exam: Warm, Dry and Intact COURSE Treatment Treatment: NS bolus for initial treatment of hyperglycemia Consultation Called: 14:15 Consultation Comments: Dr. Perales agreed to admit for further evaluation and treatment ROR Labs Reviewed Laboratory Results Reviewed?: Yes Result Diagrams: 09/17/18 12:29 09/17/18 17:20 Laboratory: WBC 7.2 X10^3/uL (3.6-10.0) 09/17/18 12:29 RBC 4.27 X10^6/uL (3.5-5.4) 09/17/18 12:29 Hgb 12.4 g/dL (12.0-16.0) 09/17/18 12:29 Hct 38.3 % (36.0-47.0) 09/17/18 12:29 MCV 89.6 fL (80.0-100.0) 09/17/18 12:29 MCH 29.0 pg (27.0-34.0) 09/17/18 12:29 MCHC 32.4 g/dL (33.0-35.0) L 09/17/18 12:29 RDW 14.9 % (11.6-16.5) 09/17/18 12:29 Plt Count 164 X10^3/uL (150.0-450.0) 09/17/18 12:29 MPV 11.2 fL (7.4-11.0) H 09/17/18 12:29 Neut % (Auto) 72.5 % (42.0-75.0) 09/17/18 12:29 Lymph % (Auto) 16.6 % (21.0-51.0) L 09/17/18 12:29 Throckmorton % (Auto) 5.9 % (0.0-13.0) 09/17/18 12:29 Eos % (Auto) 4.1 % (0.9-2.9) H 09/17/18 12:29 Baso % (Auto) 0.9 % (0.2-1.0) 09/17/18 12:29 Neut # (Auto) 5.3 x10^3/uL (2.2-4.8) H 09/17/18 12:29 Lymph # (Auto) 1.2 X10^3/uL (1.3-2.9) L 09/17/18 12:29 [place]rockmorton # (Auto) 0.4 x10^3/uL (0.3-0.8) 09/17/18 12:29 Eos # (Auto) 0.3 x10^3/uL (0.0-0.2) H 09/17/18 12:29 Baso # (Auto) 0.1 X10^3/uL (0.0-0.1) 09/17/18 12:29 Absolute Nucleated RBC 0.0 /100WBC 09/17/18 12:29 INR Target Range - 09/17/18 12:29 INR 1.01 (0.8-1.3) 09/17/18 12:29 APTT 29.4 SECONDS (22.9-36.5) 09/17/18 12:29 PTT Comment - 09/17/18 12:29 Sodium 129 mmol/L (136-145) L 09/17/18 12:29 Corrected Sodium 143 mmol/L (136-145) 09/17/18 12:29 Potassium 4.9 mmol/L (3.5-5.1) 09/17/18 12:29 Chloride 91 mmol/L (98-107) L 09/17/18 12:29 Carbon Dioxide 33.6 mmol/L (21-32) H 09/17/18 12:29 BUN 52 mg/dL (7-18) H 09/17/18 12:29 Creatinine 1.76 mg/dL (0.55-1.02) H 09/17/18 12:29 Est GFR (MDRD) Af Amer 35 (>60) L 09/17/18 12:29 Est GFR (MDRD) Non-Af 29 (>60) L 09/17/18 12:29 Glucose 391 mg/dL (65-99) H 09/17/18 17:20 POC Glucose (mg/dL) 88 mg/dL (65-99) 09/17/18 22:24 Calcium 8.2 mg/dL (8.5-10.1) L 09/17/18 12:29 Corrected Calcium 8.8 mg/dL (8.5-10.1) 09/17/18 12:29 Magnesium 2.2 mg/dL (1.7-2.9) 09/17/18 12:29 Total Bilirubin 0.60 mg/dL (0.2-1.0) 09/17/18 12:29 AST 11 Units/L (15-37) L 09/17/18 12:29 ALT 17 Units/L (12-78) 09/17/18 12:29 Alkaline Phosphatase 183 Units/L (46-116) H 09/17/18 12:29 Creatine Kinase 61 Units/L (26-192) 09/17/18 17:20 CK-MB (CK-2) 1.9 ng/mL (0-4.0) 09/17/18 17:20 CK/CKMB % Calc 3.1 % (<4) 09/17/18 17:20 Troponin I 0.02 ng/mL (0-1.5) 09/17/18 17:20 Total Protein 7.5 g/dL (6.4-8.2) 09/17/18 12:29 Albumin 3.2 g/dL (3.4-5.0) L 09/17/18 12:29 Globulin 4.3 g/dL (2.5-4.5) 09/17/18 12:29 Albumin/Globulin Ratio 0.7 Ratio (1.1-2.1) L 09/17/18 12:29 Specimen Type Clean catch urine 09/17/18 14: Urine Color Yellow (YELLOW) 09/17/18 14: Urine Appearance Clear (CLEAR) 09/17/18 14: Urine pH 7.0 (5.0 - 8.0) 09/17/18 14: Ur Specific Heber 1.010 (1.000-1.030) 09/17/18 14:19 Urine Protein Negative (NEGATIVE) 09/17/18 14:19 Urine Glucose (UA) 4+ (NEGATIVE) 09/17/18 14:19 Urine Ketones Negative (NEGATIVE) 09/17/18 14:19 Urine Occult Blood Negative (NEGATIVE) 09/17/18 14:19 Urine Nitrite Negative (NEGATIVE) 09/17/18 14:19 Urine Bilirubin Negative (NEGATIVE) 09/17/18 14:19 Urine Urobilinogen Normal (NORMAL) 09/17/18 14:19 Ur Leukocyte Esterase Negative (NEGATIVE) 09/17/18 14:19 Other Results Comments: CT Brain: There is cerebral volume loss and nonspecific white matter hypo-attenuation likely relatedto chronic micorvascular ischemic changes. Again noted is a right cerebellopontine angle mass measuring 3x2x2.4cm. There is mass effect upon preet right cerebella peduncle as well as mild effacement of the 4th ventricle that is chronic in nature without significant interval change. Differental considerations would include meningioma, vestibular schwannoma, metastatic disease,etc. No evidence of hydrocephalus. There is a left-sided perianal craniotomy defect. There is a trace amount of simple subdural fluid li chava postsurgical in nature. No new hemorrhage identified. Impression: Post craniotomy changes on the left without evidence of acute intracranial abnormality. Grossly stable right cerebellopontine angle mass as previously described. Chronic cerebral voulum loss and nonspecific white matter changes. XRAY XRAY Interpreted by: Radiologist Diagnosis Discharge Problem: Hyperglycemia, Hyponatremia, Prerenal azotemia ADDITIONAL NOTES Additional Notes Additional Notes: Patient will be admitted for treatment of her hyperglycemia.
[2018-09-17 14:26] LABS: BILIRUBIN,URINE NEGATIVE (NEGATIVE); BLOOD/HEMOGLOBIN,URINE NEGATIVE (NEGATIVE); GLUCOSE, URINE 4+ (NEGATIVE); KETONES,URINE NEGATIVE (NEGATIVE); LEUKOCYTE ESTERASE ,URINE NEGATIVE (NEGATIVE); NITRITES,URINE NEGATIVE (NEGATIVE); PROTEIN,URINE NEGATIVE (NEGATIVE); UROBILINOGEN,URINE NORMAL (NORMAL)
[2018-09-17 14:27] LABS: APPEARANCE,URINE CLEAR (CLEAR); COLOR,URINE YELLOW (YELLOW)
[2018-09-17] MEDS ORDERED: D50W ABBOJECT SYR IV PRN (14:55)
[2018-09-17] MEDS ORDERED: NS 1000 ML 1,000 ML IV PRN (14:57)
[2018-09-17] MEDS: HumuLIN R IV PRN ×2 (16:10→18:13)
[2018-09-17] MEDS: NS 1000 ML 1,000 ML IV SCH (18:18)
[2018-09-17 18:38] LABS: CKMB % 3.1 % (<4); CREATINE KINASE MB 1.9 ng/mL (0-4.0); TROPONIN I 0.02 ng/mL (0-1.5)
[2018-09-17] MEDS ORDERED: LANTISEPTIC ONE (20:34)
[2018-09-17] MEDS: LOPRESSOR TAB 25 MG PO SCH (21:51)
[2018-09-17] MEDS: LASIX PO SCH (21:51)
[2018-09-17] MEDS: LYRICA CAP 50 MG PO SCH (21:51)
[2018-09-17] MEDS: LIPITOR TAB 20 MG PO SCH (21:51)
[2018-09-17] MEDS ORDERED: LANTISEPTIC TOP PRN (21:54)
[2018-09-18 00:52] LABS: CKMB % 3.5 % (<4); TROPONIN I 0.04 ng/mL (0-1.5)
[2018-09-18] MEDS: NS 1000 ML 1,000 ML IV SCH ×2 (07:18→09:20)
[2018-09-18] MEDS ORDERED: PIOGLITAZONE PO SCH (09:00)
[2018-09-18] MEDS ORDERED: ACTOS PO SCH ×2 (09:00)
[2018-09-18] MEDS ORDERED: FERROUS SULFATE 325 MG PO SCH (09:00)
[2018-09-18] MEDS: HEMOCYTE-PLUS PO SCH (09:09)
[2018-09-18] MEDS: ASPIRIN EC 81 MG PO SCH (09:10)
[2018-09-18] MEDS: LOPRESSOR TAB 25 MG PO SCH ×2 (09:10→20:53)
[2018-09-18] MEDS: LYRICA CAP 50 MG PO SCH ×2 (09:10→20:53)
[2018-09-18] MEDS: PriLOSEC PO SCH (09:10)
[2018-09-18] MEDS: PLAVIX PO SCH (09:10)
[2018-09-18] MEDS: SYNTHROID 100 mcg TAB PO SCH (09:10)
[2018-09-18] MEDS: LASIX PO SCH (09:11)
[2018-09-18] MEDS: ULTRAM PO SCH ×2 (09:12→16:26)
[2018-09-18] MEDS ORDERED: ZOFRAN INJ 4 MG VIAL IVP PRN (10:09)
[2018-09-18 10:20] LABS: BASOPHILS # (AUTO) 0.1 X10^3/uL (0.0-0.1); BASOPHILS % (AUTO) 0.5 % (0.2-1.0); EOSINOPHILS # (AUTO) 0.2 x10^3/uL (0.0-0.2); EOSINOPHILS % (AUTO) 1.8 % (0.9-2.9); HEMATOCRIT 37.2 % (36.0-47.0); HEMOGLOBIN 12.3 g/dL (12.0-16.0); LYMPHOCYTES % (AUTO) 9.9 % (21.0-51.0); MEAN CORPUSCULAR VOLUME 87.7 fL (80.0-100.0); MEAN PLATELET VOLUME 11.6 fL (7.4-11.0); MONOCYTES # (AUTO) 0.5 x10^3/uL (0.3-0.8); MONOCYTES % (AUTO) 4.9 % (0.0-13.0); NEUTROPHILS # (AUTO) 8.4 x10^3/uL (2.2-4.8); NEUTROPHILS % (AUTO) 82.9 % (42.0-75.0); PLATELET COUNT 175 X10^3/uL (150.0-450.0); RED BLOOD COUNT 4.24 X10^6/uL (3.5-5.4); RED CELL DISTRIBUTION WIDTH 14.7 % (11.6-16.5); WHITE BLOOD COUNT 10.1 X10^3/uL (3.6-10.0)
[2018-09-18 10:29] LABS: ALBUMIN 2.9 g/dL (3.4-5.0); CALCIUM 7.8 mg/dL (8.5-10.1); CARBON DIOXIDE 26.8 mmol/L (21-32); COR CA(FOR HYPOALB) 8.7 mg/dL (8.5-10.1); CREATININE 1.18 mg/dL (0.55-1.02); TOTAL PROTEIN 7.1 g/dL (6.4-8.2)
[2018-09-18] MEDS: JANUVIA PO SCH (11:25)
[2018-09-18] MEDS: INVOKANA PO SCH (13:36)
[2018-09-18] MEDS: LIPITOR TAB 20 MG PO SCH (20:53)
[2018-09-18] MEDS ORDERED: COLACE CAP 100 MG PO PRN (21:00)
[2018-09-18] MEDS ORDERED: NORCO 5/325 MG TAB PO ONE (22:31)
[2018-09-19 05:20] LABS: BASOPHILS # (AUTO) 0.1 X10^3/uL (0.0-0.1); BASOPHILS % (AUTO) 0.9 % (0.2-1.0); EOSINOPHILS # (AUTO) 0.3 x10^3/uL (0.0-0.2); EOSINOPHILS % (AUTO) 5.1 % (0.9-2.9); HEMATOCRIT 31.1 % (36.0-47.0); HEMOGLOBIN 10.4 g/dL (12.0-16.0); LYMPHOCYTES # (AUTO) 1.8 X10^3/uL (1.3-2.9); LYMPHOCYTES % (AUTO) 25.5 % (21.0-51.0); MEAN CORPUSCULAR HGB CONC 33.3 g/dL (33.0-35.0); MEAN CORPUSCULAR VOLUME 87.2 fL (80.0-100.0); MONOCYTES # (AUTO) 0.6 x10^3/uL (0.3-0.8); NEUTROPHILS # (AUTO) 4.2 x10^3/uL (2.2-4.8); NEUTROPHILS % (AUTO) 60.5 % (42.0-75.0); PLATELET COUNT 148 X10^3/uL (150.0-450.0); RED BLOOD COUNT 3.57 X10^6/uL (3.5-5.4); RED CELL DISTRIBUTION WIDTH 14.8 % (11.6-16.5); WHITE BLOOD COUNT 6.9 X10^3/uL (3.6-10.0)
[2018-09-19 05:23] LABS: ALBUMIN 2.6 g/dL (3.4-5.0); CALCIUM 7.5 mg/dL (8.5-10.1); CARBON DIOXIDE 30.4 mmol/L (21-32); COR CA(FOR HYPOALB) 8.6 mg/dL (8.5-10.1); CREATININE 1.37 mg/dL (0.55-1.02); TOTAL PROTEIN 6.1 g/dL (6.4-8.2)
[2018-09-19] MEDS ORDERED: LASIX PO SCH (09:00)
[2018-09-19] MEDS: PLAVIX PO SCH (09:34)
[2018-09-19] MEDS: HEMOCYTE-PLUS PO SCH (09:34)
[2018-09-19] MEDS: JANUVIA PO SCH (09:35)
[2018-09-19] MEDS: ASPIRIN EC 81 MG PO SCH (09:35)
[2018-09-19] MEDS: ULTRAM PO SCH (09:35)
[2018-09-19] MEDS: LYRICA CAP 50 MG PO SCH (09:35)
[2018-09-19] MEDS: LOPRESSOR TAB 25 MG PO SCH (09:35)
[2018-09-19] MEDS: SYNTHROID 100 mcg TAB PO SCH (09:36)
[2018-09-19] MEDS: PriLOSEC PO SCH (09:36)
[2018-09-19] MEDS: INVOKANA PO SCH (09:42)
[2018-09-19 12:45] VITALS: BP 129/60
== END 2018-09-19 13:45 | disposition home or self-care (01) | DRG 69 ==
LOC: ER 11:45 → ICU 15:02 → MED/SURG 09-18 18:00
PROVIDERS: ADMIT Obstetrics & Gynecology Obstetrics; ATTEND Obstetrics & Gynecology Obstetrics
DX: E11.65 Type 2 diabetes mellitus with hyperglycemia; R47.1 Dysarthria and anarthria; K21.9 Gastro-esophageal reflux disease without esophagitis; Z95.0 Presence of cardiac pacemaker; I50.9 Heart failure, unspecified; R79.89 Other specified abnormal findings of blood chemistry; I25.10 Atherosclerotic heart disease of native coronary artery without angina pectoris; G45.8 Other transient cerebral ischemic attacks and related syndromes; R94.4 Abnormal results of kidney function studies; E87.1 Hypo-osmolality and hyponatremia; R26.89 Other abnormalities of gait and mobility; R13.11 Dysphagia, oral phase; R29.810 Facial weakness; E03.8 Other specified hypothyroidism; E78.2 Mixed hyperlipidemia
CPT/HCPCS: 36415; 70450; 71010; 71045; 80053; 81003; 82550; 82553; 82947; 83735; 84484; 85025; 85610; 85730; 92507; 92523; 93005; 93010; 96365; 96367; 97166; 97535; 99283; 99284; A4222; J1815; J2405; J3490; J7030; J7050